=== PATIENT | female | born 2000 | race Caucasian/White ===

== ENCOUNTER 2021-10-31 15:43 | Emergency (ER) | payer BC, SELFPAY ==
[2021-10-31 17:34] VITALS: BP 135/75; PULSE 139; RESP 20; TEMP 37.9; O2SAT 99; BMI 33.5
--- NOTE | 2021-10-31 17:44 | HMH.EDUTC ---
[facility] [place] Clinical Impression: Viral syndrome, Exposure to influenza Pharyngitis Qualifiers: Pharyngitis/tonsillitis etiology: unspecified etiology Qualified Code(s): J02.9 - Acute pharyngitis, unspecified Disposition: Home, Self-Care Condition on Discharge: Good Instructions: DI for Influenza -- Adult, Oseltamivir, Azithromycin Additional Instructions: Drink plenty of fluids. Take tylenol or ibuprofen for pain or fever. Take the medications as directed. Follow up with your regular doctor. GO TO THE ER FOR ANY WORSENING SYMPTOMS Prescriptions: Brompheniramine/Pseudoephed/Dm [Bromfed Dm Cough Syrup] 5 ml PO Q6HP PRN #240 ml PRN Reason: Cough Transmission Status: Pending to [id number] methylPREDNISolone [Medrol] 4 mg PO DIRECTED 6 Days #21 packet Transmission Status: Pending to [id number] Oseltamivir Phosphate [Tamiflu 75mg Capsule] 75 mg PO BID #10 cap Transmission Status: Pending to [id number] Azithromycin [Z-Ketan 250mg Tab*] 250 mg PO UD DOSE PK #6 tab Transmission Status: Pending to [id number] Referrals: Javier Roper MD [Primary Care Provider] - Forms: Work/School Release Time of Disposition: 18:06 Medical Decision Making - Medical Records Medical records reviewed: No: I reviewed the patient's medical records. - Ajay Inquiry Pt receiving controlled substance: No Vital Signs: 10/31/21 17:34 Temperature 100.3 F H Temperature Source Oral Pulse Rate [Left] 139 H Respiratory Rate 20 Blood Pressure [Right Arm] 135/75 Blood Pressure Mean [Right Arm] 95 02 Sat by Pulse Oximetry 99 - Lab Data Lab results reviewed: Yes: I reviewed the patient's lab results. [facility] [place] - General Stated complaint: exposed to flu, with symptoms Time Seen by Provider: 10/31/21 17:44 Mode of Arrival: Ambulatory Source of Information: Patient Limitations: No Limitations Description of Symptoms (Recalled from Triage Doc. by RN): pt c/o fever, chills, myalgia, cough and congestion x4 days. mom is positive for flu HEENT Symptoms (Recalled from RN notes): Yes Resp Symptoms (Recalled from RN notes): Yes Skin Symptoms (Recalled from RN notes): No MS Symptoms (Recalled from RN notes): No Functional Status (Recalled from RN notes): wnl - History of Present Illness Provider Complaint: She states that for the past 2 days she has had fever, chills, body aches, cough, and chest congestion. Her mother has influenza a and she has been around her mother a lot. She has not had a flu shot this season. - Related Data Home Medications Medication Instructions Recorded Confirmed norgestimate 0.25 mg-ethinyl 1 tab PO DAILY 09/23/18 09/23/18 estradiol 35 mcg tablet Previous Rx's Medication Instructions Recorded amoxicillin 500 mg tablet 500 mg PO BID 10 Days #20 tab 09/23/18 Azithromycin [Z-Ketan 250mg Tab*] 250 mg PO UD DOSE PK #6 tab 10/31/21 Brompheniramine/Pseudoephed/Dm 5 ml PO Q6HP PRN #240 ml 10/31/21 [Bromfed Dm Cough Syrup] Oseltamivir Phosphate [Tamiflu 75 mg PO BID #10 cap 10/31/21 75mg Capsule] methylPREDNISolone [Medrol] 4 mg PO DIRECTED 6 Days #21 10/31/21 packet Allergies Allergy/AdvReac Type Severity Reaction Status Date / Time No Known Allergies Allergy Verified 09/23/18 12:14 - Worker's Comp Is this a Worker's Comp case?: No [facility] History - Hepatitis A Screen Drug use history?: No High risk sexual behaviors?: No History of sexually transmitted infection?: No Currently employed?: No Childcare worker?: No Do you have indoor plumbing?: Yes Do you have electricity?: Yes Attestation statement:: This patient has been screened for Hepatitis A risk factors. I have reviewed the patient's past medical history: Yes Medical History: Reports:: Gastroesophageal Reflux Disease(GERD), Migraine Other Surgeries: Yes: No Previous Surgery - Social History Smoking Status: Never smoker Alcohol Intake: never Alcohol
[2021-10-31 18:03] LABS: UTC Influenza A Antigen Negative (Negative)
[2021-10-31 18:04] LABS: UTC Influenza B Antigen Negative (Negative)
[2021-10-31 18:15] VITALS: BP 135/75; PULSE 139; RESP 20; TEMP 37.9
== END 2021-10-31 18:19 | disposition home or self-care (01) ==
PROVIDERS: Emergency Provider Nurse Practitioner Family; PCP Family Medicine
DX: B34.9 Viral infection, unspecified (principal); Z20.822 Contact with and (suspected) exposure to COVID-19; J02.9 Acute pharyngitis, unspecified; K21.9 Gastro-esophageal reflux disease without esophagitis
CPT/HCPCS: 87804; 99202; G0463